=== PATIENT | male | born 1980 | race Caucasian/White ===

== ENCOUNTER 2017-11-27 20:31 | Emergency (ER) | payer BC, OTHER ==
[~2017-11-27] VITALS: Ht 177.8 cm; Wt 105.7 kg
[2017-11-27] MEDS ORDERED: OMEP20TA62 PO (20:48)
[2017-11-27] MEDS ORDERED: ACYC-57 PO (20:48)
[2017-11-27 20:52] VITALS: BP 117/79
[2017-11-27] MEDS ORDERED: LORazepam 1MG TABLET PO ONE (21:30)
[2017-11-27] MEDS ORDERED: LORazepam 1MG TABLET ONE (21:40)
== END 2017-11-27 23:10 | disposition home or self-care (01) ==
LOC: ED 22:05
DX: R21 Rash and other nonspecific skin eruption (principal); R23.2 Flushing; Z87.891 Personal history of nicotine dependence
CPT/HCPCS: 93005; 99283